=== PATIENT | male | born 1940 | race Caucasian/White ===

== ENCOUNTER 2021-10-30 15:42 | Emergency (ER) | payer OTHER ==
[~2021-10-30 15:42] MED LIST: ALPRAZOLAM0.5 MG PO; AMLODIPINE BESY10 MG PO; ASPIRIN EC81 MG PO; ATORVASTATIN CA20 MG PO; AZELASTINE205.5 MCG/; BRILINTA 90 MG90 MG PO; CELEXA20 MG PO; COZAAR100 MG PO; DESYREL 50 MG T50 MG PO; HYDROCHLOROTHIA25 MG PO; HYTRIN CAP 1 MG1 MG PO; ISOSORBIDE MONO60 MG PO; LEVAQUIN500 MG PO; LIPITOR TAB 2020 MG PO; NEURONTIN 300300 MG PO; NITROFURANTOIN100 MG PO; OMEPRAZOLE20 MG PO; OMNICEF 300 MG300 MG PO; PATANOL OP SOLN5 ML EYEBOTH; PLAVIX 75 MG TA75 MG PO; PREDNISONE10 MG PO; PROVENTIL HFA6.7 GM INH; RANEXA1000 MG PO; SYNTHROID150 MCG PO; TRAZODONE HCL50 MG PO; ULORIC 40 MG TA40 MG PO; ZANTAC 150 MG150 MG PO; ZOLOFT50 MG PO; ZYLOPRIM 300 M300 MG PO; [UNRECOGNIZED DRUG - OTHER] PO
[2021-10-30 16:44] LABS: HEMOGLOBIN 9.9 gm/dl (14.0-17.5); RED BLOOD COUNT 2.83 M/UL (4.20-5.50); WHITE BLOOD COUNT 11.1 K/UL (4.5-11.0)
[2021-10-30] MEDS ORDERED: AMOXICILLIN500 M1 PO (18:19)
== END 2021-10-30 18:58 | disposition home or self-care (01) ==
LOC: ER1 15:42
PROVIDERS: Emergency Medicine
DX: R04.0 Epistaxis (principal); D64.9 Anemia, unspecified; N19 Unspecified kidney failure; I10 Essential (primary) hypertension; E78.5 Hyperlipidemia, unspecified; Z95.1 Presence of aortocoronary bypass graft
CPT/HCPCS: 80053; 85025; 85610; 85730; 99283

== ENCOUNTER 2021-11-01 13:54 | Inpatient (IN) | payer OTHER ==
[~2021-11-01] VITALS: Ht 180.3 cm; Wt 120.2 kg
[~2021-11-01 13:54] MED LIST changes: +AMOXICILLIN500 M1 PO
[2021-11-01 14:42] LABS: HEMOGLOBIN 9.6 gm/dl (14.0-17.5); RED BLOOD COUNT 2.76 M/UL (4.20-5.50); WHITE BLOOD COUNT 8.9 K/UL (4.5-11.0)
[2021-11-01] MEDS ORDERED: AMOXICILLIN500 M1 PO (18:29)
[2021-11-01] MEDS ORDERED: ATORVASTATIN CA40 MG PO (18:30)
[2021-11-01] MEDS ORDERED: ALLOPURINOL300 MG PO (18:32)
[2021-11-01] MEDS ORDERED: CLOPIDOGREL75 MG PO (18:32)
[2021-11-01] MEDS ORDERED: GABAPENTIN300 MG PO (18:32)
[2021-11-01] MEDS ORDERED: BETHANECHOL CHL25 MG PO (18:32)
[2021-11-01] MEDS ORDERED: BUMETANIDE1 MG PO (18:33)
[2021-11-01] MEDS ORDERED: METOPROLOL TART25 MG PO (18:34)
[2021-11-01] MEDS ORDERED: HYDRALAZINE HCL50 MG PO (18:34)
[2021-11-02 03:26] LABS: HEMOGLOBIN 8.9 gm/dl (14.0-17.5); RED BLOOD COUNT 2.55 M/UL (4.20-5.50); WHITE BLOOD COUNT 8.5 K/UL (4.5-11.0)
--- NOTE | 2021-11-02 10:14 | NUR ---
11/02/21 1000 REPORT CALLED TO SE[facility] TO BE TRANSPORTED TO ROOM [id number]
--- NOTE | 2021-11-02 11:02 | NUR ---
PT ARRIVED TO UNIT, SITTING UP IN BED HE DENIES NEEDS OR C/O AT THIS TIME.
[2021-11-03 04:49] LABS: HEMOGLOBIN 8.6 gm/dl (14.0-17.5); RED BLOOD COUNT 2.57 M/UL (4.20-5.50); WHITE BLOOD COUNT 8.9 K/UL (4.5-11.0)
== END 2021-11-03 12:40 | disposition home health service (06) | DRG 683 ==
LOC: ER1 13:54 → CDU 16:36 → 3 EAST 23:37 → M/S 11-02 10:59
PROVIDERS: Nurse Practitioner; Physician Assistant; Physician Assistant Medical; ADMIT Internal Medicine
PROC: B24BZZ4 Ultrasonography of Heart with Aorta, Transesophageal (ICD-10-PCS; principal; 2021-11-03)
DX: N17.9 Acute kidney failure, unspecified (principal); I13.0 Hypertensive heart and chronic kidney disease with heart failure and stage 1 through stage 4 chronic kidney disease, or unspecified chronic kidney disease; I50.22 Chronic systolic (congestive) heart failure; J98.11 Atelectasis; N18.4 Chronic kidney disease, stage 4 (severe); D53.9 Nutritional anemia, unspecified; E78.5 Hyperlipidemia, unspecified; E03.9 Hypothyroidism, unspecified; M10.9 Gout, unspecified; G47.33 Obstructive sleep apnea (adult) (pediatric); R04.0 Epistaxis; S02.2XXA Fracture of nasal bones, initial encounter for closed fracture; E66.9 Obesity, unspecified; I25.10 Atherosclerotic heart disease of native coronary artery without angina pectoris; Z20.822 Contact with and (suspected) exposure to COVID-19; Z99.81 Dependence on supplemental oxygen; Z95.5 Presence of coronary angioplasty implant and graft; Z85.51 Personal history of malignant neoplasm of bladder; Z98.890 Other specified postprocedural states; Z85.828 Personal history of other malignant neoplasm of skin; Z88.8 Allergy status to other drugs, medicaments and biological substances; Z82.49 Family history of ischemic heart disease and other diseases of the circulatory system; Z87.891 Personal history of nicotine dependence; Z79.82 Long term (current) use of aspirin; Z68.36 Body mass index [BMI] 36.0-36.9, adult
CPT/HCPCS: ECHO; 36415; 70450; 71045; 71046; 72125; 80048; 80053; 82550; 82553; 82607; 82728; 82746; 83540; 83550; 83735; 83874; 84484; 85025; 85027; 85610; 85730; 93005; 93306; 97161; 97166; 99284; J7030; U0002